=== PATIENT | female | born 1950 | race Caucasian/White ===

== ENCOUNTER 2018-11-29 08:37 | Day surgery (SDC) | payer MEDICARE ==
[~2018-11-29 08:37] MED LIST: Lactated Ringers 1,000 ML IV SCH; Sodium Chloride 0.9% 10 ML Syringe FLUSH PRN
[2018-11-29] MEDS ORDERED: fentaNYL 100 MCG/2 ML SDV ONE (10:50)
[2018-11-29] MEDS ORDERED: Propofol 200 MG/20 ML SDV ONE ×2 (10:50→12:21)
--- NOTE | 2018-11-29 20:50 | OR ---
REFERRING PROVIDER: Dr. Strong. PREOPERATIVE DIAGNOSES: 1. History of colon polyps. Last colonoscopy was in 2013. 2. Positive family history of colon cancer in mother. POSTOPERATIVE DIAGNOSES: 1. Larger sessile mass/polyp to the right colon at 75 cm from the anal verge. This spans 2 haustral folds and half the circumference of the colon lumen. Borders are not very distinct. Cold biopsy x4 bites taken and the area marked with ink. 2. 2 mm polyp at 70 cm, removed with cold forceps. 3. [id number] diverticulosis. 4. Moderate hemorrhoids. PROCEDURE: Colonoscopy with polypectomy x1 and cold biopsy x1 area along with marking of area with ink. SURGEON: Yevgeniy Aguilar M.D. ANESTHESIA: Monitored anesthesia care. BOWEL PREP: Good. Elvira is 68-year-old female who was brought to the endoscopy suite after discussing risks and benefits of the procedure. Informed consent was obtained for conscious sedation and colonoscopy with or without biopsy and/or polypectomy. We also discussed possibility of missed lesions. Pre-procedure exam was unremarkable. IV, oxygen, and monitors were placed. The patient was placed in the left lateral decubitus position. Sedation was administered and a digital rectal exam was performed which reveals moderate external hemorrhoidal skin tags. Colonoscope was passed into the rectum and slowly advanced all the way to the cecum. Cecum was viewed and photographed. The colonoscope was slowly withdrawn and the mucosa was closed observed in a direct circumferential manner. The mid ascending colon, at about 75 cm from the anal verge revealed a larger sessile mass/polyp spanning 2 haustra folds as well as half the circumference of the colonic lumen. Borders of this were not very distinct. Cold biopsy x4 bites was taken. The area was tattooed with ink in 4 quadrants. The ascending colon also revealed 2 mm polyp at 70 cm, removed with cold forceps. The transverse colon was unremarkable. Descending and sigmoid colon revealed [id number] diverticulosis. Retroflexion was performed. Rectal mucosa revealed some moderate hemorrhoids. Scope was removed. The patient tolerated the procedure well. The patient was monitored until that baseline status. Discharge instructions were reviewed and the patient was discharged in good condition. COMPLICATIONS: None. TOTAL TIME: 22 minutes. ESTIMATED BLOOD LOSS: 1 to 2 mL. RECOMMENDATIONS/FOLLOW-UP: Await results of the path report, but then the patient likely will need referral to either general surgery or colorectal surgery for possible right colectomy for removal of this polyp. Further workup including lab and/or imaging may also be indicated pending path report. I will have the patient hold her aspirin indefinitely for the time being. I would like to kindly thank Dr. Strong for this referral. DMB: 11/29/2018 14:00:18 MODL: 11/29/2018 20:48:02 /[id number]
== END 2018-11-30 15:21 ==
LOC: VM.SDS 08:37
PROVIDERS: ATTEND Family Medicine
DX: D12.2 Benign neoplasm of ascending colon (principal); K63.5 Polyp of colon; K57.30 Diverticulosis of large intestine without perforation or abscess without bleeding; K64.9 Unspecified hemorrhoids; Z86.010 Personal history of colon polyps; Z80.0 Family history of malignant neoplasm of digestive organs; I10 Essential (primary) hypertension; E78.00 Pure hypercholesterolemia, unspecified; R73.9 Hyperglycemia, unspecified; E55.9 Vitamin D deficiency, unspecified; Z00.00 Encounter for general adult medical examination without abnormal findings; Z79.82 Long term (current) use of aspirin; Z79.899 Other long term (current) drug therapy; Z79.1 Long term (current) use of non-steroidal anti-inflammatories (NSAID); Z87.891 Personal history of nicotine dependence; Z88.2 Allergy status to sulfonamides; Z91.030 Bee allergy status
CPT/HCPCS: 00811; 45380; 45381; 88305; J2704; J3010; J7120

== ENCOUNTER 2023-05-11 12:18 | Day surgery (SDC) | payer MEDICARE ==
[~2023-05-11 12:18] MED LIST changes: -Sodium Chloride 0.9% 10 ML Syringe FLUSH PRN
[2023-05-11] MEDS ORDERED: Propofol 200 MG/20 ML SDV ONE (13:26)
[2023-05-11] MEDS ORDERED: Midazolam 1 MG/ML 2 ML SDV ONE (13:27)
[2023-05-11] MEDS ORDERED: fentaNYL 100 MCG/2 ML SDV ONE (13:27)
== END 2023-05-11 15:08 | disposition home or self-care (01) ==
LOC: VM.SDS 12:18
PROVIDERS: ATTEND Family Medicine
DX: D12.6 Benign neoplasm of colon, unspecified (principal); K57.30 Diverticulosis of large intestine without perforation or abscess without bleeding; E78.00 Pure hypercholesterolemia, unspecified; I10 Essential (primary) hypertension; M25.562 Pain in left knee; G89.29 Other chronic pain; M15.9 Polyosteoarthritis, unspecified; E55.9 Vitamin D deficiency, unspecified; Z85.038 Personal history of other malignant neoplasm of large intestine; Z90.49 Acquired absence of other specified parts of digestive tract; Z98.0 Intestinal bypass and anastomosis status; Z79.899 Other long term (current) drug therapy; Z79.82 Long term (current) use of aspirin; Z88.2 Allergy status to sulfonamides; Z87.891 Personal history of nicotine dependence
CPT/HCPCS: 45380; 88305; J2250; J2704; J3010; J7120; 00811